=== PATIENT | female | born 1955 | race Caucasian/White ===

== ENCOUNTER → 2017-08-27 14:36 | Outpatient (CLI) | payer OTHER, SELFPAY ==
--- NOTE | 2017-08-27 14:36 | DT_ITS ---
This patient was seen during an EMR downtime August 24, 2017 - August 31, 2017. This patient may have a combination of paper and electronic documentation or all paper documentation. All documentation is viewable within the e-chart portion of [facility] for each patient visit.
--- NOTE | 2017-08-27 15:12 | BI_ITS ---
MAMMOGRAPHY - BILATERAL SCREENING REASON FOR EXAM: Female, 62 years old. Routine annual screening examination. PERTINENT HISTORY: Non-contributory. TECHNIQUE: Digital bilateral breast arlyn (3D mammographic acquisition) in the CC and MLO projections. 2-D mediolateral oblique (MLO) and craniocaudad (CC) views of both breasts were obtained. CAD: Full Field Digital Mammography with Computer Added Detection was performed. COMPARISON: Comparison is made with prior study dated January 09, 2015 and January 10, 2014. FINDINGS: Breast Composition: The breasts are heterogeneously dense, which may obscure small masses. There are no dominant masses or suspicious calcifications. No other significant abnormalities are identified. There has been no significant change since the prior study. BI/SCREENING MAMM (CAD), BILAT IMPRESSION: Stable bilateral screening mammogram. Yearly follow-up mammogram recommended. (A) ASSESSMENT CATEGORY: BIRADS Category 1: Negative. A letter regarding these results will be sent to the patient by the facility within 30 days. Approximately 10% of breast cancers are not detected by mammography. A normal mammogram should not delay biopsy of a clinically suspicious abnormality. [id number] Electronically Signed: Rich Mariee MD at 9:02 EDT Tel [phone], Service support ,
== END ==
PROVIDERS: Family Provider Family Medicine; PCP Family Medicine; Visit Provider Family Medicine
DX: Z12.31 Encounter for screening mammogram for malignant neoplasm of breast (principal)
CPT/HCPCS: 77063; 77067

== ENCOUNTER → 2018-08-30 14:59 | Outpatient (CLI) | payer SELFPAY, OTHER ==
--- NOTE | 2018-08-30 15:05 | BI_ITS ---
MAMMOGRAPHY - BILATERAL SCREENING REASON FOR EXAM: Female, 63 years old. Routine annual screening examination. PERTINENT HISTORY: Non-contributory. TECHNIQUE: Digital bilateral breast nasreen (3D mammographic acquisition) in the CC and MLO projections. 2-D mediolateral oblique (MLO) and craniocaudad (CC) views of both breasts were obtained. CAD: Full Field Digital Mammography with Computer Added Detection was performed. COMPARISON: Comparison is made with prior study dated August 27, 2017 and January 09, 2015. FINDINGS: Breast Composition: There are scattered areas of fibroglandular density. There are no dominant masses or suspicious calcifications. No other significant abnormalities are identified. There has been no significant change since the prior study. BI/SCREEN MAMM (CAD) W/NASREEN BILAT IMPRESSION: Stable bilateral screening mammogram. Yearly follow-up mammogram recommended. (A) ASSESSMENT CATEGORY: BIRADS Category 1: Negative. A letter regarding these results will be sent to the patient by the facility within 30 days. Approximately 10% of breast cancers are not detected by mammography. A normal mammogram should not delay biopsy of a clinically suspicious abnormality. [id number] Electronically Signed: Rich Mariee, at 15:55 EDT , Service support ,
== END ==
PROVIDERS: Family Provider Family Medicine; PCP Family Medicine; Referring Provider Family Medicine; Visit Provider Family Medicine
DX: Z12.31 Encounter for screening mammogram for malignant neoplasm of breast (principal)
CPT/HCPCS: 77063; 77067

== ENCOUNTER → 2019-08-09 11:17 | Outpatient (CLI) | payer OTHER, SELFPAY ==
[2019-08-09 12:50] LABS: Absolute Lymphocyte Count 1.84 X10^3/uL (0.83-4.51); Absolute Neutrophil Count 1.8 X10^3/uL (2.0-7.7); Basophil# 0.03 X10^3/uL; Basophil% 0.7 % (0-1); Eosinophil# 0.07 X10^3/uL; Eosinophils% 1.7 % (0-5); Hematocrit 43.2 % (37-47); Hemoglobin 14.1 g/dL (12.0-15.0); Lymphocyte # 1.84 X10^3/ul (4.0); Lymphocyte % 44.8 % (19-41); Mean Corp Hgb Conc 32.6 g/dL (32-36); Mean Corpuscular Hgb 32.8 pg (27.0-32.0); Mean Corpuscular Volume 100.5 fL (81-99); Mean Platelet Vol. 9.1 fl (6.2-12.0); Monocyte# 0.36 X10^3/uL; Monocyte% 8.8 % (0-10); NRBC Flagged by Analyzer 0 % (0-5); Neutrophil % 43.8 % (47-70); Platelet Count 227 K/mm3 (150-450); RBC Distribution Width CV 12.2 % (11.6-14.6); RBC Distribution Width SD 45.3 fl (35.1-43.9); White Blood Count 4.1 K/mm3 (4.4-11.0)
[2019-08-09 12:54] LABS: Vitamin D,25 Hydroxy 27.8 ng/mL
[2019-08-09 13:18] LABS: AST(SGOT) 26 U/L (15-37); Alanine Aminotransfer ALT/SGPT 25 U/L (13-56); Albumin, Serum 3.9 g/dL (3.2-5.0); Alkaline Phosphatase 72 U/L (45-117); Anion Gap 5 (5-15); BUN 19 mg/dL (7-18); BUN/Creat Ratio 23.2 RATIO (10-20); Calcium,Total 9.3 mg/dL (8.5-10.1); Chloride 107 mmol/L (98-107); Cholesterol 221 mg/dL (200); Creatinine, Serum 0.82 mg/dL (0.55-1.02); EST Glomerular Filtration Rate 75 mL/min (>60); Est Glom Filt Rate - Afr Amer 91 mL/min (>60); Globulin 3.8 g/dL (2.2-4.2); Glucose 83 mg/dL (74-106); High Density Lipoprotein 94 mg/dL; Potassium 4.1 mmol/L (3.5-5.1); Protein, Total 7.7 g/dL (6.4-8.2); Sodium Level 139 mmol/L (136-145); T4 Free Direct 1.02 ng/dL (0.76-1.46); Thyroid Stim Hormone (TSH) 4.09 uIU/mL (0.358-3.74); Triglycerides 81 mg/dL; Very Low Density Lipoprotein 16 mg/dL (5-40)
== END ==
PROVIDERS: Family Medicine; PCP Family Medicine; Visit Provider Family Medicine
DX: E03.9 Hypothyroidism, unspecified (principal); E55.9 Vitamin D deficiency, unspecified
CPT/HCPCS: 36415; 80053; 80061; 82306; 84439; 84443; 85025

== ENCOUNTER → 2019-08-12 08:24 | Outpatient (CLI) | payer OTHER, SELFPAY ==
--- NOTE | 2019-08-12 08:37 | US_ITS ---
STUDY: THYROID ULTRASOUND REASON FOR EXAM: Female, 64 years old. Thyroid nodule on physical exam. On Synthroid. TECHNIQUE: Ultrasound evaluation of the thyroid was performed with real-time and static taylor-scale imaging. COMPARISON: CT cervical spine without contrast 09/28/2011. FINDINGS: RIGHT LOBE: The right lobe of the thyroid gland measures 4.2 x 1.2 x 1.2 cm. There is a heterogeneous echotexture. 2 solid nodules in the upper pole measuring 0.8 x 0.9 x 0.7 cm and 0.3 x 0.3 x 0.3 cm it. The smaller thyroid nodule has calcific rim. LEFT LOBE: The left lobe of the thyroid gland measures 4.1 x 1.3 x 1.4 cm. There is a heterogeneous echotexture. Solid nodule in the lower pole measuring 1.0 x 0.8 x 0.8 cm. ISTHMUS: The isthmus measures 3 mm. US/Thyroid IMPRESSION: 1. Small solid nodules in the upper pole of the right thyroid lobe measuring 0.8 x 0.9 x 0.7 cm and 0.3 x 0.3 x 0.3 cm. The smaller nodule has calcified rim. This calcified nodule was present on CT of 09/28/2011. 2. Small solid nodule in the lower pole of the left thyroid lobe measuring 1.0 x 0.8 x 0.8 cm. 3. Heterogeneous echogenicity of both thyroid lobes corresponds to the heterogeneous density of the thyroid lobes on CT cervical spine of 09/28/2011. Electronically Signed: Mono Cervantes MD at 10:40 EDT , Service support ,
== END ==
PROVIDERS: PCP Family Medicine; Referring Provider Family Medicine; Visit Provider Family Medicine
DX: E04.1 Nontoxic single thyroid nodule (principal)
CPT/HCPCS: 76536

== ENCOUNTER → 2019-10-14 | Outpatient (CLI) | payer OTHER, SELFPAY | END | disposition home or self-care (01) | LOC: LABSPEC 13:19 | PROVIDERS: PCP Family Medicine; Referring Provider Family Medicine; Visit Provider Family Medicine | DX: R69 Illness, unspecified (principal) ==

== ENCOUNTER → 2019-10-17 | Outpatient (CLI) | payer OTHER, SELFPAY ==
[2019-10-19 15:23] LABS: HPV Reflexed? NOT INDICATED
== END | disposition home or self-care (01) ==
LOC: LABSPEC 13:05
PROVIDERS: PCP Family Medicine; Referring Provider Nurse Practitioner Family; Visit Provider Nurse Practitioner Family
DX: Z12.4 Encounter for screening for malignant neoplasm of cervix (principal)
CPT/HCPCS: 88175; G0145

== ENCOUNTER → 2020-05-31 13:47 | Outpatient (CLI) | payer OTHER, SELFPAY ==
--- NOTE | 2020-05-31 13:52 | BI_ITS ---
MAMMOGRAPHY - BILATERAL SCREENING REASON FOR EXAM: Female, 65 years old. Routine annual screening examination. PERTINENT HISTORY: Non-contributory. TECHNIQUE: Digital bilateral breast nasreen (3D mammographic acquisition) in the CC and MLO projections. 2-D mediolateral oblique (MLO) and craniocaudad (CC) views of both breasts were obtained. CAD: Full Field Digital Mammography with Computer Added Detection was performed. COMPARISON: 08/30/2018 and 08/27/2017 FINDINGS: Breast Composition: There are scattered areas of fibroglandular density. There are no dominant masses or suspicious calcifications. No other significant abnormalities are identified. BI/SCRN MAMM (CAD)W/NASREEN BILAT IMPRESSION: Stable bilateral screening mammogram. Yearly follow-up mammogram recommended. (A) ASSESSMENT CATEGORY: BIRADS Category 2: Benign. A letter regarding these results will be sent to the patient by the facility within 30 days. Approximately 10% of breast cancers are not detected by mammography. A normal mammogram should not delay biopsy of a clinically suspicious abnormality. [id number] Electronically Signed: Obi Reed MD at 17:23 EST Tel , Service support ,
--- NOTE | 2020-05-31 13:52 | US_ITS ---
STUDY: THYROID ULTRASOUND REASON FOR EXAM: Female, 65 years old. NODULE TECHNIQUE: Ultrasound evaluation of the thyroid was performed with real-time and static taylor-scale imaging. COMPARISON: 08/12/2019 FINDINGS: RIGHT LOBE: The right lobe of the thyroid gland measures 3.9 x 1.0 x 1.4 cm. There is a heterogeneous echotexture. Evaluation for nodules inhibited due to significant gland heterogeneity. There are 2 nodules are pseudonodules measuring 6 x 5 x 4 mm and 8 x 6 x 4 mm, not substantially changed the prior study when compared side by side. Small calcification measuring 3 mm is stable. LEFT LOBE: The left lobe of the thyroid gland measures 3.4 x 1.2 x 1.3 cm. There is a heterogeneous echotexture. 8 x 8 x 8 mm solid, hyperechoic nodule of the left thyroid lobe is stable to mildly smaller since the prior study. No new nodule. ISTHMUS: The isthmus measures 4 mm. The regional lymph nodes are normal. US/Thyroid IMPRESSION: Small, heterogeneous thyroid gland. Stable to slightly smaller (left) thyroid nodules. None of the nodules warrant FNA sampling at this time according to ACR guidelines. Electronically Signed: Carlos Calero MD ([place]) at 9:00 EST , Service support ,
--- NOTE | 2020-05-31 14:12 | BD_ITS ---
STUDY: DUAL ENERGY X-RAY ABSORPTIOMETRY / DXA REASON FOR EXAM: Female, 65 years old. Z780. Patient is postmenopausal. Loss of height. TECHNIQUE: Bone Mineral Density (BMD) measurements of lumbar spine and bilateral hips were obtained. COMPARISON: Comparison is made with prior study dated 12/30/2014. FINDINGS: Lumbar Spine (L1-L4): g/cm2 (0.991) / T-score (-1.5) / Z-score (0.0) Findings are suggestive of osteopenia with a low fracture risk. Left Femur Total: g/cm2 (0.838) / T-score (-1.3) / Z-score (-0.3) Left Femoral Neck: g/cm2 (0.769) / T-score (-1.9) / Z-score (-0.6) Right Femur Total: g/cm2 (0.853) / T-score (-1.2) / Z-score (-0.1) Right Femoral Neck: g/cm2 (0.872) / T-score (-1.2) / Z-score (0.2) The T-Scores on the most recent prior examination were: Lumbar Spine (L1-L4): There has been worsening of bone density since the previous examination. Left Femur Total: which represents a worsening of 10.3%. Right Femur Total: which represents a worsening of 7.4%. BD/Dexa Bone Density Study IMPRESSION: The patient is considered osteopenic as outlined below according to World Alberto Organization (WHO) criteria with a moderate fracture risk. There has been worsening of bone density since the previous examination. Reference Information: The T-score is the number of standard deviations above or below the standard which is normal for young adults at their peak bone mineral density. The World Health Organization (WHO) interprets the T-scores as follows: Above -1 Normal bone density Between -1 and -2.5 Osteopenia Equal to / or below -2.5 Osteoporosis As a practical clinical guideline, osteopenia may be graded as follows: Mild -1 through -1.5 Moderate -1.6 through -2.0 Severe -2.1 through -2.4 The Z-score is the number of standard deviations above or below age-matched controls. A Z-score of less than -1.5 would be considered abnormal. References: 1. NIH Osteoporosis and Related Bone Diseases www osteo.org 2. International Society for Clinical Densitometry www iscd.org 3. National Osteoporosis Foundation www nof.org Electronically Signed: Rich Mariee MD at 8:51 EDT , Service support ,
== END ==
PROVIDERS: PCP Family Medicine; Referring Provider Internal Medicine; Visit Provider Internal Medicine
DX: Z12.31 Encounter for screening mammogram for malignant neoplasm of breast (principal); E04.1 Nontoxic single thyroid nodule; Z78.0 Asymptomatic menopausal state
CPT/HCPCS: 76536; 77063; 77067; 77080

== ENCOUNTER 2021-07-11 12:26 | Outpatient (CLI) | payer SELFPAY ==
--- NOTE | 2021-07-11 12:30 | BI_ITS ---
MAMMOGRAPHY - BILATERAL SCREENING 3-D TOMOSYNTHESIS REASON FOR EXAM: Female, 66 years old. SCREENING PERTINENT HISTORY: No significant family history. TECHNIQUE: 2-D mammograms and 3-D Tomosynthesis of the breast (s) were performed. CAD was performed. COMPARISON: 05/31/2020 FINDINGS: The breast composition is heterogeneously dense that can obscure small breast masses. Scattered benign calcifications are seen. No dense spiculated masses or suspicious microcalcifications are identified. No architectural distortion is identified. There is no skin thickening or retraction. There has been no significant change since the prior study. BI/SCRN MAMM (CAD)W/NASREEN BILAT IMPRESSION: No mammographic signs of malignancy. Routine yearly mammograms recommended. ASSESSMENT CATEGORY: BIRADS Category 1: Negative. A letter regarding these results will be sent to the patient by the facility within 30 days. FOLLOW UP RECOMMENDATION: Yearly follow up mammogram recommended. (A) Approximately 10% of breast cancers are not detected by mammography. A normal mammogram should not delay biopsy of a clinically suspicious abnormality. Electronically Signed: J Luis Guzmán MD at 16:20 EDT ,
--- NOTE | 2021-07-11 12:36 | BD_ITS ---
STUDY: DUAL ENERGY X-RAY ABSORPTIOMETRY / DXA REASON FOR EXAM: Female, 66 years old. Z780. Patient is postmenopausal. TECHNIQUE: Bone Mineral Density (BMD) measurements of lumbar spine and bilateral hips were obtained. COMPARISON: Comparison is made with prior examination dated 05/31/2020. FINDINGS: Lumbar Spine (L1-L4): g/cm2 (0.911) / T-score (-0.6) / Z-score (1.0) Findings are suggestive of normal bone density with a low fracture risk. Left Femur Total: g/cm2 (0.809) / T-score (-1.1) / Z-score (0.1) Left Femoral Neck: g/cm2 (0.605) / T-score (-2.2) / Z-score (-0.7) Right Femur Total: g/cm2 (0.827) / T-score (-0.9) / Z-score (0.3) Right Femoral Neck: g/cm2 (0.678) / T-score (-1.5) / Z-score (-0.1) The T-Scores on the most recent prior examination were: Lumbar Spine (L1-L4): There has been improvement of bone density since the previous examination. Left Femur Total: which represents an improvement of 4.2%. Right Femur Total: which represents an improvement of 4.6%. BD/Dexa Bone Density Study IMPRESSION: The patient is considered osteopenic as outlined below according to World Alberto Organization (WHO) criteria with a high fracture risk. There has been improvement of bone density since the previous examination. Reference Information: The T-score is the number of standard deviations above or below the standard which is normal for young adults at their peak bone mineral density. The World Health Organization (WHO) interprets the T-scores as follows: Above -1 Normal bone density Between -1 and -2.5 Osteopenia Equal to / or below -2.5 Osteoporosis As a practical clinical guideline, osteopenia may be graded as follows: Mild -1 through -1.5 Moderate -1.6 through -2.0 Severe -2.1 through -2.4 The Z-score is the number of standard deviations above or below age-matched controls. A Z-score of less than -1.5 would be considered abnormal. References: 1. NIH Osteoporosis and Related Bone Diseases www osteo.org 2. International Society for Clinical Densitometry www iscd.org 3. National Osteoporosis Foundation www nof.org Electronically Signed: Rich Mariee MD at 10:24 EDT ,
== END 2021-07-11 23:59 | disposition home or self-care (01) ==
LOC: OPBD 12:29
PROVIDERS: PCP Internal Medicine; Referring Provider Internal Medicine; Visit Provider Internal Medicine
DX: Z12.31 Encounter for screening mammogram for malignant neoplasm of breast (principal); Z78.0 Asymptomatic menopausal state
CPT/HCPCS: 77063; 77067; 77080

== ENCOUNTER → 2022-07-15 | Outpatient (CLI) | payer MEDICARE, OTHER, SELFPAY ==
--- NOTE | 2022-07-15 14:29 | US_ITS ---
STUDY: THYROID ULTRASOUND REASON FOR EXAM: Female, 67 years old. Thyroid nodules. TECHNIQUE: Ultrasound evaluation of the thyroid was performed with real-time and static taylor-scale imaging. COMPARISON: Comparison is made with prior study May 31, 2020. FINDINGS: RIGHT LOBE: The right lobe of the thyroid gland measures 3.5 cm x 1.3 cm x 1.4 cm. There is a heterogeneous echotexture. There is a 3 mm x 3 mm x 2 mm solid nodule in the upper pole. LEFT LOBE: The left lobe of the thyroid gland measures 3.2 cm x 1 cm x 1.5 cm. There is a heterogeneous echotexture. There is a slightly echogenic nodule measuring 0.5 cm x 0.7 cm x 0.7 cm in the lower lobe. It is solid with the intralobular nodular and very nodular vascularity. ISTHMUS: The isthmus measures 4 mm. The regional lymph nodes are normal. US/Thyroid IMPRESSION: Heterogeneous echotexture of both lobes of thyroid with small bilateral nodular densities. Electronically Signed: Rich Mariee MD at 13:33 EDT ,
--- NOTE | 2022-07-15 14:29 | BI_ITS ---
MAMMOGRAPHY - BILATERAL SCREENING REASON FOR EXAM: Female, 67 years old. Routine annual screening examination. PERTINENT HISTORY: Non-contributory. TECHNIQUE: Digital bilateral breast nasreen (3D mammographic acquisition) in the CC and MLO projections. 2-D mediolateral oblique (MLO) and craniocaudad (CC) views of both breasts were obtained. CAD: Full Field Digital Mammography with Computer Added Detection was performed. COMPARISON: Comparison is made with prior study dated July 11, 2021 and May 31, 2020. FINDINGS: Breast Composition: The breasts are heterogeneously dense, which may obscure small masses. There are no dominant masses or suspicious calcifications. No other significant abnormalities are identified. There has been no significant change since the prior study. BI/SCRN MAMM (CAD)W/NASREEN BILAT IMPRESSION: Stable bilateral screening mammogram. Yearly follow-up mammogram recommended. (A) ASSESSMENT CATEGORY: BIRADS Category 1: Negative. A letter regarding these results will be sent to the patient by the facility within 30 days. Approximately 10% of breast cancers are not detected by mammography. A normal mammogram should not delay biopsy of a clinically suspicious abnormality. [id number] Electronically Signed: Rich Mariee MD at 15:20 EDT ,
== END | disposition home or self-care (01) ==
LOC: US 14:27
PROVIDERS: PCP Internal Medicine; Referring Provider Internal Medicine; Visit Provider Internal Medicine
DX: Z12.31 Encounter for screening mammogram for malignant neoplasm of breast (principal); E04.1 Nontoxic single thyroid nodule
CPT/HCPCS: 76536; 77063; 77067

== ENCOUNTER → 2023-07-22 | Outpatient (CLI) | payer MEDICARE, OTHER, SELFPAY ==
--- NOTE | 2023-07-22 10:19 | BI_ITS ---
MAMMOGRAPHY - BILATERAL SCREENING REASON FOR EXAM: Female, 68 years old. Routine annual screening examination. PERTINENT HISTORY: Non-contributory. TECHNIQUE: Digital bilateral breast nasreen (3D mammographic acquisition) in the CC and MLO projections. 2-D mediolateral oblique (MLO) and craniocaudad (CC) views of both breasts were obtained. CAD: Full Field Digital Mammography with Computer Added Detection was performed. COMPARISON: Comparison is made with prior study July 15, 2022 and July 11, 2021. FINDINGS: Breast Composition: The breasts are heterogeneously dense, which may obscure small masses. There are no dominant masses or suspicious calcifications. No other significant abnormalities are identified. There has been no significant change since the prior study. BI/SCRN MAMM (CAD)W/NASREEN BILAT IMPRESSION: Stable bilateral screening mammogram. Yearly follow-up mammogram recommended. (A) ASSESSMENT CATEGORY: BIRADS Category 1: Negative. A letter regarding these results will be sent to the patient by the facility within 30 days. Approximately 10% of breast cancers are not detected by mammography. A normal mammogram should not delay biopsy of a clinically suspicious abnormality. [id number] Electronically Signed: Rich Mariee MD at 12:18 EDT ,
--- NOTE | 2023-07-22 10:24 | BD_ITS ---
STUDY: DUAL ENERGY X-RAY ABSORPTIOMETRY / DXA REASON FOR EXAM: Female, 68 years old. Z780 -- Post Menopausal status TECHNIQUE: Bone Mineral Density (BMD) measurements of lumbar spine and bilateral hips were obtained. COMPARISON: Comparison is made with prior study dated July 11, 2021. FINDINGS: Lumbar Spine (L1-L4): g/cm2 (0.935) / T-score (-0.4) / Z-score (1.3) Findings are suggestive of normal bone density with a low fracture risk. Left Femur Total: g/cm2 (0.820) / T-score (-1.0) / Z-score (0.3) Left Femoral Neck: g/cm2 (0.629) / T-score (-2.0) / Z-score (-0.4) Right Femur Total: g/cm2 (0.822) / T-score (-1.0) / Z-score (0.3) Right Femoral Neck: g/cm2 (0.699) / T-score (-1.4) / Z-score (0.2) The T-Scores on the most recent prior examination were: Lumbar Spine (L1-L4): There has been improvement of bone density since the previous examination. Left Femur Total: which represents an improvement of 1.3%. Right Femur Total: which represents a worsening of 0.6%. BD/Dexa Bone Density Study IMPRESSION: The patient is considered osteopenic as outlined below according to World Alberto Organization (WHO) criteria with a moderate fracture risk. There has been improvement of bone density since the previous examination. Reference Information: The T-score is the number of standard deviations above or below the standard which is normal for young adults at their peak bone mineral density. The World Health Organization (WHO) interprets the T-scores as follows: Above -1 Normal bone density Between -1 and -2.5 Osteopenia Equal to / or below -2.5 Osteoporosis As a practical clinical guideline, osteopenia may be graded as follows: Mild -1 through -1.5 Moderate -1.6 through -2.0 Severe -2.1 through -2.4 The Z-score is the number of standard deviations above or below age-matched controls. A Z-score of less than -1.5 would be considered abnormal. References: 1. NIH Osteoporosis and Related Bone Diseases www osteo.org 2. International Society for Clinical Densitometry www iscd.org 3. National Osteoporosis Foundation www nof.org Electronically Signed: Rich Mariee MD at 14:30 EDT ,
== END | disposition home or self-care (01) ==
PROVIDERS: PCP Internal Medicine; Referring Provider Internal Medicine; Visit Provider Internal Medicine
DX: Z12.31 Encounter for screening mammogram for malignant neoplasm of breast (principal); Z78.0 Asymptomatic menopausal state
CPT/HCPCS: 77063; 77067; 77080

== ENCOUNTER → 2024-03-04 | Outpatient (CLI) | payer MEDICARE, OTHER, SELFPAY ==
--- NOTE | 2024-03-04 13:35 | ECHOD_ITS ---
Reason For Study: Thoracic Aortic Ectasia Procedure This was a 2D Doppler, Color Flow transthoracic echocardiogram. Exam performed in department. Left Ventricle Normal LV size. The estimated ejection fraction is 65 %. No evidence for diastolic dysfunction. No regional wall motion abnormalities noted. Right Ventricle Normal RV size. Normal systolic function. Atria Normal left atrium. The right atrium is mildly enlarged. Bubble contrast study negative for right to left interatrial shunt. Mitral Valve There is no mitral valve stenosis. Mild (1+) mitral valve insufficiency. Tricuspid Valve There is no tricuspid stenosis. Moderate (2+) tricuspid valve insufficiency. Pulmonary artery systolic pressure is 35 mmHg. Aortic Valve Trisinus/trileaflet aortic valve. There is no aortic stenosis. No aortic valve insufficiency. Pulmonic Valve There is no pulmonic valvular stenosis. Trivial pulmonic valve insufficiency. Great Vessels Mildly dilated aortic root. Pericardium/Pleural Trivial pericardial effusion. Medication Performed a rapid injection of agitated mix of 9 cc saline and 1cc air to assess for atrial septal defect. MMode/2D Measurements & Calculations LVIDd: 4.2 cm IVSd: 0.85 cm asc Aorta Diam: 4.5 cm LVIDs: 2.6 cm LVPWd: 0.90 cm RVDd: 4.4 cm FS: 38.1 % LAV(MOD-bp): 38.1 ml LVAd ap4: 21.2 cm2 SV(MOD-sp4): 34.7 ml LAV(MOD-bp) Indexed: 24.2 ml/m2 LVLd ap4: 6.4 cm SI(MOD-sp4): 22.0 ml/m2 LAV(MOD-sp2): 30.3 ml EDV(MOD-sp4): 57.1 ml LAV(MOD-sp4): 45.8 ml EDV(sp4-el): 59.5 ml LVAs ap4: 11.7 cm2 LVLs ap4: 5.2 cm ESV(MOD-sp4): 22.4 ml ESV(sp4-el): 22.5 ml EF(MOD-sp4): 60.7 % EF(sp4-el): 62.1 % SV(sp4-el): 36.9 ml LA A4 area: 16.8 cm2 RA A4 area: 20.7 cm2 TAPSE: 2.1 cm Time Measurements MV dec time: 0.19 sec Doppler Measurements & Calculations MV E max nicholas: 51.2 cm/sec Lat Peak E' Nicholas: 2.9 cm/sec Med Peak E' Nicholas: 8.6 cm/sec MV A max nicholas: 71.2 cm/sec E/E' lat: 17.5 E/E' med: 5.9 MV E/A: 0.72 Ao V2 max: 114.4 cm/sec LV V1 max: 98.8 cm/sec MV dec slope: 272.6 cm/sec2 Ao max P.2 mmHg LV V1 max P.9 mmHg Ao V2 mean: 87.6 cm/sec Ao mean P.3 mmHg Ao V2 VTI: 21.7 cm PA V2 max: 85.0 cm/sec PI end-d nicholas: 73.1 cm/sec TR max nicholas: 258.9 cm/sec TR max P.8 mmHg ECHO/Echo Complete Interpretation Summary The estimated ejection fraction is 65 %. No evidence for diastolic dysfunction. The right atrium is mildly enlarged. Mild (1+) mitral valve insufficiency. Mildly dilated aortic root. Trivial pericardial effusion. Ordering Physician: Rebeca Najera Referring Physician: Rebeca Najera Performed By: Sari Leonard, RDCS, RVT
== END | disposition home or self-care (01) ==
LOC: CVS 13:33
PROVIDERS: PCP Internal Medicine; Referring Provider Internal Medicine; Visit Provider Internal Medicine
DX: I77.810 Thoracic aortic ectasia (principal)
CPT/HCPCS: 93306; A4216

== ENCOUNTER → 2024-10-04 | Outpatient (CLI) | payer MEDICARE, OTHER, SELFPAY ==
--- NOTE | 2024-10-04 10:15 | BI_ITS ---
EXAM: SCRN MAMM (CAD)W/NASREEN BILAT DATE: 10/04/2024 CLINICAL HISTORY: F, Age 69 y/o , SCREENING No family history. TECHNIQUE: SCRN MAMM (CAD)W/NASREEN BILAT COMPARISON: Prior exam(s) dated July 22, 2023.. FINDINGS: TISSUE DENSITY: The breasts are heterogeneously dense, which may obscure small masses. Bilateral Breast Mammographic Findings: There is retraction of the right areola. Correlation with ultrasound recommended.. BI/SCRN MAMM (CAD)W/NASREEN BILAT IMPRESSION: Retraction of the right areolar complex. Targeted sonographic correlation jennifer mmended. OVERALL FINAL ASSESSMENT BI-RADS 0: INCOMPLETE - NEED ADDITIONAL IMAGING EVALUATION. RECOMMENDATION: Ultrasound Recommended A letter with findings and recommendations will be mailed to the patient. Reading Location: [id number]
--- NOTE | 2024-10-04 10:15 | BI_ITS ---
EXAM: SCRN MAMM (CAD)W/NASREEN BILAT DATE: 10/04/2024 CLINICAL HISTORY: F, Age 69 y/o , SCREENING No family history. TECHNIQUE: SCRN MAMM (CAD)W/NASREEN BILAT COMPARISON: Prior exam(s) dated July 22, 2023.. FINDINGS: TISSUE DENSITY: The breasts are heterogeneously dense, which may obscure small masses. Bilateral Breast Mammographic Findings: There is retraction of the right areola. Correlation with ultrasound recommended.. BI/SCRN MAMM (CAD)W/NASREEN BILAT IMPRESSION: Retraction of the right areolar complex. Targeted sonographic correlation jennifer mmended. OVERALL FINAL ASSESSMENT BI-RADS 0: INCOMPLETE - NEED ADDITIONAL IMAGING EVALUATION. RECOMMENDATION: Ultrasound Recommended A letter with findings and recommendations will be mailed to the patient. Reading Location: [id number]
--- NOTE | 2024-10-04 10:38 | ECHOD_ITS ---
Reason For Study Reason For Study: Pericardial Effusion Procedure This was a 2D Doppler, Color Flow transthoracic echocardiogram. Myocardial strain analysis was performed in this exam to aid in the assessment of cardiac function. Exam performed in department. Left Ventricle Normal size and thickness. The global longitudinal strain = -18.6 % (normal). Normal LV systolic function. Estimated LVEF 55-60%. Diastolic function indeterminate. Right Ventricle Normal right ventricle. Atria The left atrium is moderately enlarged. The right atrium is severely enlarged. Mitral Valve Mild (1+) mitral valve insufficiency. Tricuspid Valve Moderately severe (3+) tricuspid valve insufficiency. Right ventricular systolic pressure estimated to be 45 mmHg. Aortic Valve Trisinus/trileaflet aortic valve. Pulmonic Valve The pulmonic valve is not well visualized. Trivial pulmonic valve insufficiency. Great Vessels Normal sized aortic root. Pericardium/Pleural No pericardial effusion. MMode/2D Measurements & Calculations LVIDd: 3.9 cm IVSd: 1.0 cm Ao root diam: 4.0 cm LVIDs: 2.8 cm LVPWd: 1.0 cm RVDd: 4.6 cm FS: 27.0 % asc Aorta Diam: 4.6 cm LAV(MOD-bp): 53.2 ml LVAd ap4: 23.2 cm2 LAV(MOD-bp) Indexed: 33.4 ml/m2 LVLd ap4: 6.7 cm LAV(MOD-sp2): 54.5 ml EDV(MOD-sp4): 66.9 ml LAV(MOD-sp4): 52.3 ml EDV(sp4-el): 68.4 ml LVAs ap4: 14.0 cm2 LVLs ap4: 5.3 cm ESV(MOD-sp4): 30.0 ml ESV(sp4-el): 31.2 ml EF(MOD-sp4): 55.2 % EF(sp4-el): 54.5 % SV(MOD-sp4): 36.9 ml SV(sp4-el): 37.3 ml Ao sinus diam: 3.2 cm SI(MOD-sp4): 23.2 ml/m2 Ao ST Junction: 3.0 cm LA A4 area: 18.7 cm2 LA dimension(2D): 3.0 cm RA A4 area: 22.4 cm2 Time Measurements MV dec time: 0.21 sec Doppler Measurements & Calculations MV E max nicholas: 46.6 cm/sec Lat Peak E' Nicholas: 5.4 cm/sec Med Peak E' Nicholas: 7.1 cm/sec MV A max nicholas: 62.1 cm/sec E/E' lat: 8.7 E/E' med: 6.6 MV E/A: 0.75 MV V2 max: 66.4 cm/sec MV P1/2t max nicholas: 52.6 cm/sec Ao V2 max: 104.6 cm/sec MV max P.8 mmHg MV P1/2t: 65.0 msec Ao max P.4 mmHg MV V2 mean: 34.0 cm/sec MV dec slope: 237.2 cm/sec2 Ao V2 mean: 71.2 cm/sec MV mean P.56 mmHg Ao mean P.4 mmHg MV V2 VTI: 20.8 cm MVA(P1/2t): 3.4 cm2 Ao V2 VTI: 22.7 cm AV (velocity ratio): 0.91 LV V1 max: 98.1 cm/sec MR max nicholas: 541.8 cm/sec PA V2 max: 65.0 cm/sec LV V1 max P.8 mmHg MR max P.4 mmHg LV V1 mean P.1 mmHg LV V1 mean: 68.9 cm/sec LV V1 VTI: 20.7 cm TR max nicholas: 317.5 cm/sec TR max P.3 mmHg ECHO/Echo Complete Interpretation Summary Normal LV systolic function. Estimated LVEF 55-60%. Diastolic function indeterm inate. The left atrium is moderately enlarged. The right atrium is severely enlarged. Mild (1+) mitral valve insufficiency. Moderately severe (3+) tricuspid valve insufficiency. Right ventricular systolic pressure estimated to be 45 mmHg. Ordering Physician: Rebeca Najera Referring Physician: Rebeca Najera Performed By: Andre Alaniz RCS
== END | disposition home or self-care (01) ==
LOC: CVS 10:13
PROVIDERS: PCP Internal Medicine; Referring Provider Internal Medicine; Visit Provider Internal Medicine
DX: Z12.31 Encounter for screening mammogram for malignant neoplasm of breast (principal); I31.39 Other pericardial effusion (noninflammatory)
CPT/HCPCS: 77063; 77067; 93306

== ENCOUNTER → 2024-10-18 | Outpatient (CLI) | payer MEDICARE, OTHER, SELFPAY ==
--- NOTE | 2024-10-18 08:35 | US_ITS ---
PROCEDURE: BREAST LIMITED UNILATERAL 10/18/2024 REASON FOR EXAM: F, Age 69 y/o , ABN MAMM Right areolar retraction. COMPARISON: . TECHNIQUE: BREAST LIMITED UNILATERAL. The retroareolar region of the right breast was examined with ultrasound. FINDINGS: Fibroglandular tissue. No suspicious nodules are seen. US/Breast Limited Unilateral IMPRESSION: No suspicious abnormality is seen. BI-RADS 1: NEGATIVE RECOMMENDATION: Routine annual follow-up in 1 Year Reading Location: [id number]
== END | disposition home or self-care (01) ==
LOC: OPUS 08:34
PROVIDERS: PCP Internal Medicine; Referring Provider Internal Medicine; Visit Provider Internal Medicine
DX: R92.8 Other abnormal and inconclusive findings on diagnostic imaging of breast (principal)
CPT/HCPCS: 76642